=== PATIENT | male | born 1995 | race Caucasian/White ===

== ENCOUNTER 2018-03-09 22:20 | Emergency (ER) | payer SELFPAY ==
[~2018-03-09] VITALS: Ht 175.3 cm; Wt 68.2 kg
[2018-03-09 22:22] VITALS: BP 116/77
== END 2018-03-09 23:51 | disposition left against medical advice (07) ==
LOC: EMS 22:23
DX: R06.02 Shortness of breath (principal); J45.909 Unspecified asthma, uncomplicated; Z53.21 Procedure and treatment not carried out due to patient leaving prior to being seen by health care provider